=== PATIENT | female | born 1940 | race Caucasian/White ===

== ENCOUNTER 2016-07-10 13:23 | Day surgery (SDC) | payer MEDICARE ==
[~2016-07-10 13:23] MED LIST: ALBU8I INH; ALPR0.5T99 PO; AMIT50 PO; DICY10CA13 PO; FURO1TAB93 PO; HYDR-3535 PO; LISI-360 PO; METH750T2 PO; PHEN12.5 PO; POTA-243 PO; ROPI1TAB PO; SERT100 PO; ZOLP10TA3 PO
[2016-07-10 13:35] VITALS: BP 141/82; PULSE 83; RESP 20; TEMP 98.3; O2SAT 100
--- NOTE | 2016-07-10 16:59 | RADRPT ---
EXAM DATE/TIME: 07/10/2016 00:00 [place] COMPARISON : No previous studies available for comparison. INDICATIONS : Abdominal pain OBJECTIVE: Temperature: 98.3 Heart Rate: 111 Blood Pressure: 141/72 Respiratory: 20 Oximetry: 95 PNEUMONIA VACCINE: HISTORY OF PRESENT ILLNESS: The patient reports vague upper abdominal pain fairly consistently since her fundoplication surgery. Pain does not necessarily correspond to postprandial timing and is not severe. PAST MEDICAL HISTORY : 1. Atherosclerosis of Aorta,tortuous Aorta 2. Chronic obstructive pulmonary disease. 3. Pulmonary HTN 4. Hyperparathyroidism 5. Polyarthritis 6. Celiac Artery Stenosis 7. Rectal Bleeding PAST SURGICAL HISTORY : 1. Arthropathy shoulder 2. Appendectomy 3. Cholecystectomy. 4. EGD,Colonoscopy 5. Hysterectomy. SOCIAL HISTORY : No alcohol use. Tobacco;former. ALLERGIES: 1. Adhesives 2. Penicillin 3. StatinsZetia,lipitor 4. Entex LA MEDICATIONS: 1. albuterol inhaler t.i.d. 2. alprazolam 0.5 mg t.i.d. 3. diclomine 10 mg t.i.d. 4. methocarbamol 750 mg t.i.d. 5. ropinirole 1 mg q.h.s. 6. sertraline 200 mg q.d. 7. ventolin inh q.i.d. 8. zolpidem 10 mg q.h.s. IMAGING STUDIES: CTA examination from June 18, 2016 performed at [facility] reveals a widely patent superior mesenteric artery. The ZAFAR is patent. There is focal tapering and kinking of the celiac artery origin which appears mostly related to compression and focal displacement by the right diaphragmatic booker. This is certainly of questionable significance from a physiologic standpoint. No atherosclerotic sten osis is present. The renal arteries are widely patent. No significant aortoiliac inflow stenosis is p resent. Runoff is nearly normal. ASSESSMENT: The appearance of the celiac artery on the patient's recent CTA is not felt to reflect a physiologica lly significant stenosis. The other mesenteric vessels are intact and normal. Films were reviewed in detail with the patient. PLAN: I do not believe there is any indication for further evaluation of the mesenteric circulation. I appreciate the opportunity to assist in the care of this pleasant woman. Malcolm Elliott MD on July 10, 2016 at 16:50 Board Certified Radiologist. This report was verified electronically.
[2016-08-25] MEDS ORDERED: ZOLP10TA3 PO (13:12)
[2016-08-25] MEDS ORDERED: SERT-129 PO (13:12)
[2016-08-25] MEDS ORDERED: ROPI1TAB PO (13:28)
[2016-08-25] MEDS ORDERED: PROM12.54 PO (13:28)
[2016-08-25] MEDS ORDERED: ALBUAER3 INH (13:31)
[2016-08-25] MEDS ORDERED: METH750T PO (13:31)
[2016-08-25] MEDS ORDERED: LISI10TA3 PO (13:31)
[2016-08-25] MEDS ORDERED: POTA-163 PO (13:31)
[2016-08-25] MEDS ORDERED: ALPR0.5T3 PO (13:33)
[2016-08-25] MEDS ORDERED: HYDR-3583 PO (13:33)
[2016-08-25] MEDS ORDERED: AMIT50TA3 PO (13:33)
[2016-08-25] MEDS ORDERED: FURO40TA PO (13:33)
[2016-08-25] MEDS ORDERED: DICY10CA12 PO (13:33)
[2016-08-26] MEDS ORDERED: VITA2000 PO (12:07)
[2016-08-26] MEDS ORDERED: BENZ1CAP8 PO (12:07)
[2016-08-26] MEDS ORDERED: FLUT1SPR5 EACH NARE (12:07)
[2016-08-26] MEDS ORDERED: VENTAER INH (12:07)
== END 2016-07-10 15:45 | disposition home or self-care (01) ==
LOC: HROP 13:23 → HRIP 13:23 → HROP 15:45
PROVIDERS: ATTEND Family Medicine
DX: I77.4 Celiac artery compression syndrome (principal); I27.2 Other secondary pulmonary hypertension; J44.9 Chronic obstructive pulmonary disease, unspecified; E21.3 Hyperparathyroidism, unspecified; Z88.0 Allergy status to penicillin
CPT/HCPCS: 99213; G0463

== ENCOUNTER → 2016-08-27 | Day surgery (SDC) | payer MEDICARE ==
[~2016-08-27] VITALS: Ht 165.1 cm; Wt 93.0 kg
[~2016-08-27] MED LIST changes: -ALBU8I INH; +ALBUAER3 INH; +ALPR0.5T3 PO; -ALPR0.5T99 PO; -AMIT50 PO; +AMIT50TA3 PO; +BENZ1CAP8 PO; +CYCLOPENTOLATE HCL 1% OPHT SOLN 2 ML BTL ONE; +DICY10CA12 PO; -DICY10CA13 PO; +FLURBIPROFEN 0.03% OPHT SOLN 2.5 ML BTL ONE; +FLUT1SPR5 EACH NARE; -FURO1TAB93 PO; +FURO40TA PO; -HYDR-3535 PO; +HYDR-3583 PO; +LIDOCAINE HCL 1% PF 30 ML VIAL ONE; +LIDOCAINE HCL 2% JELLY 5 ML SYRINGE ONE; -LISI-360 PO; +LISI10TA3 PO; +METH750T PO; -METH750T2 PO; +MIDAZOLAM HCL 2 MG/2 ML VIAL ONE; -PHEN12.5 PO; +PHENYLEPHRINE HCL 10% OPTH SOLN 5 ML BTL ONE; +POTA-163 PO; -POTA-243 PO; +PROM12.54 PO; +PROPARACAINE HCL 0.5% OPHT SOLN 15 ML BTL ONE; +ROPI2TAB PO; +SERT-129 PO; -SERT100 PO; +SODIUM CHLORID 0.9% 500 ML INJ 500 ML ONE; +TOBRAMYCIN/DEXAMETHASONE OPTH OINT 3.5 GM TUBE ONE; +TROPICAMIDE 1% OPHT SOLN 15 ML BTL ONE; +VENTAER INH; +VITA2000 PO; +ZITH500T PO
[2016-08-27 10:10] VITALS: BP 195/108; PULSE 92; RESP 24; TEMP 99.3; O2SAT 98
[2016-08-27 11:40] VITALS: BP 124/65; PULSE 74; RESP 16; TEMP 97; O2SAT 97
--- NOTE | 2016-08-28 20:33 | MP ---
cc: JAMES ESCOTO MD DATE OF SURGERY: 08/27/2016 [facility] #[id number] PREOPERATIVE DIAGNOSIS: Visually significant cataract left eye. POSTOPERATIVE DIAGNOSIS: Visually significant cataract left eye. OPERATION: Phacoemulsification with posterior chamber lens implantation, left eye. SURGEON: James Escoto MD ANESTHESIA: Topical with MAC. COMPLICATIONS: None. PROCEDURE: After informed consent was obtained, the patient was brought into the operative suite and placed on appropriate monitors by the Anesthesia Service. The patient had been given dilating drops and topical lidocaine gel in the holding area. The patient's operative eye was then prepped and draped in the usual sterile fashion. A wire lid speculum was placed. Further 2% lidocaine was then dropped on the cornea prior to beginning the procedure. A paracentesis incision was made in the peripheral cornea with a 1 mm isaias keratome. The anterior chamber was filled with viscoelastic. The anterior chamber was then entered through a stepped, clear corneal incision using a sharp 3 mm isaias keratome. A circular tear capsulorrhexis was then made with a bent needle cystitome. Following hydrodissection of the lens nucleus with balance saline, phacoemulsification of the nucleus was performed using a modified chopping technique. The remaining cortex was removed with irrigation/aspiration. The prior two procedures were both performed using the handpieces of the [employer] phaco unit. The capsular bag was then filled with viscoelastic. The intraocular lens was then injected into the capsular bag and positioned. The type of intraocular lens and its power can be found elsewhere in this chart. The remaining viscoelastic was then removed from the anterior chamber with the IA handpiece. The anterior chamber was reformed with balanced saline. The wound was then closed securely with stromal hydration. It was found to be watertight to an intraocular pressure of at least 30 mmHg by palpation. A small amount of balanced salt solution was then removed through the paracentesis site and the intraocular pressure at the end of the case was approximately 20 by palpation. All drapes were then removed. TobraDex ointment was then placed in the eye, which was closed beneath a semi-pressure patch dressing. The patient tolerated this procedure well and left the operating room awake and alert. The patient is to follow-up in my office in the morning. MD ASHLEY Og/DURAN /11:10 AM /8:22 PM
== END | disposition home or self-care (01) ==
LOC: PHSDC 09:09
PROVIDERS: ATTEND Optometrist Occupational Vision
DX: H25.13 Age-related nuclear cataract, bilateral (principal); I10 Essential (primary) hypertension; J44.9 Chronic obstructive pulmonary disease, unspecified; K21.9 Gastro-esophageal reflux disease without esophagitis; I73.9 Peripheral vascular disease, unspecified; Z85.828 Personal history of other malignant neoplasm of skin; Z87.891 Personal history of nicotine dependence; Z88.8 Allergy status to other drugs, medicaments and biological substances
CPT/HCPCS: 66984; J2250; J7040; V2632

== ENCOUNTER 2016-09-12 21:19 | Emergency (ER) | payer MEDICARE ==
[~2016-09-12] VITALS: Ht 165.1 cm; Wt 96.0 kg
[~2016-09-12 21:19] MED LIST changes: -CYCLOPENTOLATE HCL 1% OPHT SOLN 2 ML BTL ONE; -FLURBIPROFEN 0.03% OPHT SOLN 2.5 ML BTL ONE; -LIDOCAINE HCL 1% PF 30 ML VIAL ONE; -LIDOCAINE HCL 2% JELLY 5 ML SYRINGE ONE; -MIDAZOLAM HCL 2 MG/2 ML VIAL ONE; -PHENYLEPHRINE HCL 10% OPTH SOLN 5 ML BTL ONE; -PROPARACAINE HCL 0.5% OPHT SOLN 15 ML BTL ONE; -ROPI2TAB PO; -SODIUM CHLORID 0.9% 500 ML INJ 500 ML ONE; -TOBRAMYCIN/DEXAMETHASONE OPTH OINT 3.5 GM TUBE ONE; -TROPICAMIDE 1% OPHT SOLN 15 ML BTL ONE; -ZITH500T PO
[2016-09-12 21:21] VITALS: BP 188/91; PULSE 99; RESP 18; TEMP 99; O2SAT 96
--- NOTE | 2016-09-12 21:27 | PD ---
Physical Exam Date Seen by Provider: Sep 12, 2016 Time Seen by Provider: 21:24 Data Data Last Documented VS Vital Signs Date Time Temp Pulse Resp B/P Pulse Ox O2 Delivery O2 Flow Rate FiO2 09/12/16 21:21 99.0 99 18 188/91 96 Room Air [facility] Supervised Visit with FOUZIA: No Narrative Course 76 YO F with hx of cataract surgery 09/26 (by Dr. Schmid) with complaint of burning sensation of the left eye after accidentally instilling superglue just before arrival. Patient flushed the eyes with water and artificial tears. Denies vision changes. Vitals reviewed. Patient seen in triage. Awaiting bed placement. Radha Ruggiero Sep 12, 2016 21:27
[2016-09-12] MEDS ORDERED: ROPI2TAB PO (22:30)
[2016-09-12] MEDS ORDERED: ZITH500T PO (22:30)
--- NOTE | 2016-09-12 23:37 | PD ---
HPI Chief Complaint: Eye Problems/Injury Time Seen by Provider: 23:32 Travel History International Travel<30 days: No Contact w/Intl Traveler<30days: No Traveled to known affect area: No History of Present Illness HPI 76-year-old female presents to the emergency department by private transportation after accidentally putting superglue into her left eye. Patient underwent cataract surgery 08/27/16 with her career coordinator Dr. Romano. Patient states that she was putting in evening eyedrops as instructed and as she has been doing consistently but accidentally picked up the superglue that she had been using earlier. Patient immediately tried to rinse her eye at home. Patient states that she was able to prevent her eye lids from closing. Patient continues to have foreign body sensation to the left eye. Patient states that her tetanus status is current. Patient denies any other complaints. Patient rates discomfort 10 over 10 in the left eye. Patient denies any involvement of the right eye. Patient has follow-up with her career coordinator/surgeon 09/21/16. [facility] Past Medical History Narrative Medical Arthritis asthma dyslipidemia COPD hypertension disease pulmonary hypertension celiac artery disease tortuous aorta hepatitis gastroparesis anxiety depression cataract surgery appendectomy cholecystectomy bowel obstruction; no tobacco use no alcohol use Hx Anticoagulant Therapy: No Arthritis: Yes (RHEUMATOID) Asthma: Yes Anxiety: Yes Depression: Yes Heart Rhythm Problems: No Cancer: Yes (SKIN) Cardiac Catheterization: No Cardiovascular Problems: Yes (AORTA ARTHEROSCLEROSIS, CELIAC ARTERY STENOSIS, PULMONARY HYPERTENSION) High Cholesterol: Yes Chemotherapy: No Chest Pain: No Congestive Heart Failure: No COPD: Yes Cerebrovascular Accident: No Diabetes: No Diminished Hearing: No Endocrine: No Fibromyalgia: Yes Gastrointestinal Disorders: Yes (GERD,HX OF COLON POLYPS,ESOPHAGEAL STRICTURE, DIVERTICULOSIS, FATTY LIVER, ) GERD: Yes Genitourinary: No Hepatitis: Yes (UNSURE OF WHICH) Hiatal Hernia: Yes Hypertension: Yes Immune Disorder: No Medical other: Yes (GASTROPORESIS) Musculoskeletal: Yes (ARTHRITIS, NECK/ BACK PROBS.) Neurologic: Yes (RESTLESS LEG SYNDROME) Psychiatric: Yes (SEVERE ANXIETY,DEPRESSION) Reproductive: Yes (VAGINAL PROLAPSE) Respiratory: Yes (CHRONIC BRONCHITIS) Myocardial Infarction: No Radiation Therapy: No Sleep Apnea: Yes Thyroid Disease: No Tetanus Vaccination: Unknown Menopausal: Yes Dilation and Curettage (D&C): Yes Tubal Ligation: Yes Past Surgical History Abdominal Surgery: Yes (CHOLECYSTECTOMY 1996,APPENDECTOMY 1957, BOWEL OBSTRUCTION REPAIR) AICD: No Appendectomy: Yes Cardiac Surgery: No Cholecystectomy: Yes Coronary Artery Bypass Graft: No Ear Surgery: Yes (CYST REMOVED FROM LT EAR DRUM 2006) Endocrine Surgery: No Eye Surgery: Yes (BILATERAL CATARACTS REMOVED ) Genitourinary Surgery: No Gynecologic Surgery: Yes (TUBAL LIG.1976, HYSTERECTOMY 1991, D&C, EXPLORATORY LAP) Hysterectomy: Yes Joint Replacement: No Neurologic Surgery: Yes (LUMBAR LAMINECTOMY 2005) Oral Surgery: Yes (NOSE RECONSTRUCTION 1991, TONSILLECTOMY 1949,1955) Pacemaker: No Thoracic Surgery: Yes (FIBROIDS REMOVED L BREAST 1996, R BREAST 1997) Tonsillectomy: Yes (WITH ADENOIDS) Other Surgery: Yes (BILATERAL BREAST LUMPECTOMIES, FIBROTIC / NON-CANCEROUS, NASAL RECONSTRUC) Social History Alcohol Use: No Tobacco Use: No Substance Use: No Allergies-Medications (Allergen,Severity, Reaction): Coded Allergies: Adhesives (Verified Allergy, Severe, 09/12/16) "TAKES MY SKIN OFF" Entex LA (Verified Allergy, Severe, 09/12/16) "MAKES ME FEEL LIKE WORMS ARE CRAWLING ON ME" Levaquin (Verified Allergy, Severe, muscle and joint pain, 09/12/16) Lipitor (Verified Allergy, Severe, 09/12/16) MUSCLE ACHE Penicillin (Verified Allergy, Severe, TONGUE SWELLS, 09/12/16) Zantac (Verified Allergy, Severe, 09/12/16) "MAKES ME HYPER" Zetia (Verified Allergy, Unknown, 09/12/16) HMG-CoA Reductase Inhibitors (Unverified Adverse Reaction, Intermediate, SEVERE MUSCLE ACHES, 09/12/16) Reported Meds & Prescriptions Reported Meds & Active Scripts Active Reported Zithromax (Azithromycin) 500 Mg Tab 500 Mg PO DAILY Ropinirole 2 Mg Tab 2 Mg PO HS Vitamin D3 (Cholecalciferol) 2,000 Unit Cap 2,000 Units PO DAILY Benzonatate 100 Mg Cap 200 Mg PO TID PRN Amitriptyline (Amitriptyline HCl) 50 Mg Tab 50 Mg PO HS Dicyclomine (Dicyclomine HCl) 10 Mg Cap 10 Mg PO BID Furosemide 40 Mg Tab 40 Mg PO DAILY Hydrocodone-Acetaminophen 10-325 mg Tab 1 Tab PO Q4H PRN Alprazolam 0.5 Mg Tab 0.5 Mg PO TID PRN Potassium Chloride ER (Potassium Chloride) 20 Meq Tab 20 Meq PO BID Methocarbamol 750 Mg Tab 750 Mg PO TID Lisinopril 10 Mg Tab 10 Mg PO DAILY Proair Hfa 8.5 GM Inh (Albuterol Sulfate) 90 Mcg/Act Aer 2 Puff INH Q4-6H PRN 108 mcg/actuation Sertraline (Sertraline HCl) 100 Mg Tab 200 Mg PO DAILY Zolpidem (Zolpidem Tartrate) 10 Mg Tab 10 Mg PO HS PRN Review of Systems Except as stated in HPI: all other systems reviewed are Neg General / Constitutional: No: Fever, Chills Eyes: Positive: Blurred Vision, Foreign Body Sensation, Tearing, Visual changes , No: Diploplia, Photophobia HENT: No: Headaches Cardiovascular: No: Chest Pain or Discomfort Respiratory: No: Shortness of Breath Gastrointestinal: No: Nausea, Vomiting Genitourinary: No: Dysuria Musculoskeletal: No: Myalgias, Arthralgias Skin: No Rash Neurologic: No: Weakness Psychiatric: No: Anxiety Hematologic/Lymphatic: No: Easy Bruising Physical Exam Narrative GENERAL: Well-developed well-nourished female in no acute distress no respiratory distress; GCS 15 SKIN: Warm and dry. HEAD: Normocephalic. EYES: No scleral icterus. Mild left eye injection; no drainage. Bilateral pupils equal round reactive to light mild left injection no chemosis. No purulent drainage. Some mild glucose did at the left lower lid eyelashes easily removed with gentle sweep of moist Q-tip. Visualized glue floating and left lateral corner of the left eye. No fluorescein uptake. NECK: Supple, trachea midline. No JVD or lymphadenopathy. CARDIOVASCULAR: Regular rate and rhythm without murmurs, gallops, or rubs. RESPIRATORY: Breath sounds equal bilaterally. No accessory muscle use. GASTROINTESTINAL: Abdomen soft, non-tender, nondistended. MUSCULOSKELETAL: No cyanosis, or edema. BACK: Nontender without obvious deformity. No CVA tenderness. Data Data Last Documented VS Vital Signs Date Time Temp Pulse Resp B/P Pulse Ox O2 Delivery O2 Flow Rate FiO2 09/13/16 00:31 78 17 176/88 96 09/12/16 21:21 99.0 Room Air Orders Eye Irrigation (09/12/16 22:30) MDM Medical Decision Making Medical Screen Exam Complete: Yes Emergency Medical Condition: Yes Medical Record Reviewed: Yes Differential Diagnosis Conjunctival abrasion and corneal abrasion retained foreign body Narrative Course Direct visualization identifies foreign body consistent with reported glue floating in the left lower outer corner of the conjunctiva easily irrigated out of the eye with normal saline; fluorescein no uptake no evidence of abrasion or ulceration or retained foreign body. Additional irrigation with normal saline performed without werner lens. Visual acuity: Right eye 20/40, left eye 20/40, both eyes 20/30 It's now 12 AM patient is clinically improved patient has some mild persistent irritation to the left eye but with fluorescein staining there is no evidence of abrasion on reinspection there is no evidence of retained foreign body; patient is stable for outpatient management and follow-up with her career coordinator on Wednesday; she is encouraged to return to the emergency department over the weekend should she have any ongoing or worsening irritation or develop any drainage. Patient is continue her current post cataract surgery eyedrop regimen. Patient can use normal saline irrigation as needed or cool compresses for comfort. Tetanus status is current. Patient is aware unable to contact her career coordinator/surgeon. Physician Communication Physician Communication Call placed to Dr. Romano Diagnosis Primary Impression: FOREIGN BODY IN CONJUNCTIVAL SAC, LEFT EYE, INIT ENCNTR Referrals: James Sutton MD 2 days Additional Instructions: May irrigate eye with saline eyedrops as needed Continue current post cataract eye surgery eyedrop regimen May apply cool compresses to left eyelid as needed Return to the emergency department for any concerns or change in condition Follow-up with your eye surgeon call office on Wednesday for follow-up Disposition: 01 DISCHARGE HOME Condition: Stable Skye Cortez MD Sep 12, 2016 23:37
[2016-09-13 00:31] VITALS: BP 176/88
== END 2016-09-13 00:32 | disposition home or self-care (01) ==
LOC: NEPC 21:19
DX: T15.12XA Foreign body in conjunctival sac, left eye, initial encounter (principal); I10 Essential (primary) hypertension; K21.9 Gastro-esophageal reflux disease without esophagitis; M79.7 Fibromyalgia; J44.9 Chronic obstructive pulmonary disease, unspecified; E78.00 Pure hypercholesterolemia, unspecified; G25.81 Restless legs syndrome; G47.30 Sleep apnea, unspecified
CPT/HCPCS: 99283

== ENCOUNTER → 2016-12-10 | Day surgery (SDC) | payer MEDICARE ==
[~2016-12-10] VITALS: Ht 165.1 cm; Wt 96.5 kg
[~2016-12-10] MED LIST changes: +ACETAMINOPHEN 325 MG TAB PO PRN; +CHLORHEXIDINE GLUCONATE 2 % 1 PACK (2 CLOTHS) TOPICAL PRN; +CYCLOPENTOLATE HCL 1% OPHT SOLN 2 ML BTL ONE; +FLURBIPROFEN 0.03% OPHT SOLN 2.5 ML BTL ONE; -FLUT1SPR5 EACH NARE; +INSULIN HUMAN REGULAR 1,000 UNITS/10 ML VIAL SQ PRN; +LACTATED RINGER'S 1000 ML IV PRN; +LIDOCAINE HCL 2% JELLY 5 ML SYRINGE ONE; +LIDOCAINE HCL 2% JELLY 5 ML SYRINGE TOPICAL ONE; +METOPROLOL TARTRATE 25 MG TAB PO PRN; +MIDAZOLAM HCL 2 MG/2 ML VIAL ONE; +PHENYLEPHRINE HCL 10% OPTH SOLN 5 ML BTL ONE; +POVIDONE IODINE 5% (ANTISEPSIS KIT) 4 APPLICATIONS EACH NARE PRN; +PROPARACAINE HCL 0.5% OPHT SOLN 15 ML BTL ONE; +PROPARACAINE HCL 0.5% OPHT SOLN 15 ML BTL RIGHT EYE ONE; -ROPI1TAB PO; +ROPI2TAB PO; +SODIUM CHLORID 0.9% 500 ML IV PRN; +TOBRAMYCIN/DEXAMETHASONE OPTH OINT 3.5 GM TUBE ONE; +TROPICAMIDE 1% OPHT SOLN 15 ML BTL ONE; -VENTAER INH; +ZITH500T PO
[2016-12-10] MEDS: CYCLOPENTOLATE HCL 1% OPHT SOLN 2 ML BTL RIGHT EYE SCH ×4 (06:52→07:07)
[2016-12-10] MEDS: PHENYLEPHRINE HCL 10% OPTH SOLN 5 ML BTL RIGHT EYE SCH ×4 (06:52→07:07)
[2016-12-10] MEDS: TROPICAMIDE 1% OPHT SOLN 15 ML BTL RIGHT EYE SCH ×4 (06:52→07:07)
[2016-12-10] MEDS: FLURBIPROFEN 0.03% OPHT SOLN 2.5 ML BTL RIGHT EYE SCH ×4 (06:52→07:07)
[2016-12-10] MEDS: LIDOCAINE HCL 1% PF 30 ML VIAL ONE (07:59)
[2016-12-10 08:43] VITALS: BP 129/61; PULSE 76; RESP 16; TEMP 98.4; O2SAT 97
--- NOTE | 2016-12-10 15:27 | MP ---
cc: JAMES ESCOTO M.D. [facility] NUMBER: [id number] DATE OF SURGERY: 12/10/2016 PREOPERATIVE DIAGNOSIS: Visually significant cataract right eye. POSTOPERATIVE DIAGNOSIS: Visually significant cataract right eye. OPERATION: Phacoemulsification with posterior chamber lens implantation, right eye. SURGEON: James Escoto MD ANESTHESIA: Topical with MAC. COMPLICATIONS: None. PROCEDURE: After informed consent was obtained, the patient was brought into the operative suite and placed on appropriate monitors by the Anesthesia Service. The patient had been given dilating drops and topical lidocaine gel in the holding area. The patient's operative eye was then prepped and draped in the usual sterile fashion. A wire lid speculum was placed. Further 2% lidocaine was then dropped on the cornea prior to beginning the procedure. A paracentesis incision was made in the peripheral cornea with a 1 mm isaias keratome. The anterior chamber was filled with viscoelastic. The anterior chamber was then entered through a stepped, clear corneal incision using a sharp 3 mm isaias keratome. A circular tear capsulorrhexis was then made with a bent needle cystitome. Following hydrodissection of the lens nucleus with balance saline, phaco-emulsification of the nucleus was performed using a modified chopping technique. The remaining cortex was removed with irrigation/aspiration. The prior two procedures were both performed using the handpieces of the [employer] phaco unit. The capsular bag was then filled with viscoelastic. The intraocular lens was then injected into the capsular bag and positioned. The type of intraocular lens and its power can be found elsewhere in this chart. The remaining viscoelastic was then removed from the anterior chamber with the IA handpiece. The anterior chamber was reformed with balanced saline. The wound was then closed securely with stromal hydration. It was found to be watertight to an intraocular pressure of at least 30 mmHg by palpation. A small amount of balanced salt solution was then removed through the paracentesis site and the intraocular pressure at the end of the case was approximately 20 by palpation. All drapes were then removed. TobraDex ointment was then placed in the eye, which was closed beneath a semi-pressure patch dressing. The patient tolerated this procedure well and left the operating room awake and alert. The patient is to follow-up in my office in the morning. MD Prasanth Og /10:01 AM /3:15 PM
== END | disposition home or self-care (01) ==
LOC: PHSDC 06:24
PROVIDERS: ATTEND Optometrist Occupational Vision
DX: H25.11 Age-related nuclear cataract, right eye (principal)
CPT/HCPCS: 00142; 66984; J2250; J7040; V2632